=== PATIENT | male | born 1995 | race Two or more races ===

== ENCOUNTER 2023-03-01 21:28 | Emergency (ER) | payer OTHER ==
[~2023-03-01] VITALS: Ht 180.3 cm; Wt 93.2 kg
[2023-03-01 21:35] VITALS: BP 112/76
[2023-03-01] MEDS ORDERED: CEPH500C PO (23:25)
[2023-03-01] MEDS ORDERED: SULF400T11 PO (23:25)
== END 2023-03-01 23:39 | disposition home or self-care (01) ==
LOC: ER 21:28
DX: L03.317 Cellulitis of buttock (principal); R00.0 Tachycardia, unspecified; F41.9 Anxiety disorder, unspecified; F32.9 Major depressive disorder, single episode, unspecified; F17.290 Nicotine dependence, other tobacco product, uncomplicated; Z79.899 Other long term (current) drug therapy
CPT/HCPCS: 93005

== ENCOUNTER 2023-03-02 22:04 | Emergency (ER) | payer OTHER ==
[~2023-03-02] VITALS: Ht 180.3 cm; Wt 97.4 kg
[~2023-03-02 22:04] MED LIST: CEPH500C PO; SULF400T11 PO
[2023-03-03] MEDS ORDERED: ONDANSETRON HCL 4 MG/2 ML VIAL IV ONE
[2023-03-03] MEDS ORDERED: MAALOX PLUS or MAALOX 30 ML PO ONE
[2023-03-03] MEDS ORDERED: ONDANSETRON ODT 4 MG TAB PO ONE (00:15)
[2023-03-03 00:48] LABS: Basophils # (auto) 0 10 ^3/uL (0-0.2); Basophils % (auto) 0.5 % (0.0-2.0); Eosinophils # (auto) 0.2 10 ^3/uL (0-0.8); Eosinophils % (auto) 2.5 % (0.0-7.0); Hematocrit 42.1 % (41.0-53.0); Hemoglobin 14.3 g/dL (13.5-17.5); Lymphocytes # (auto) 2.4 10 ^3/uL (0.4-5.4); Lymphocytes % (auto) 27.4 % (10.0-50.0); Mean Corpuscular Hemoglobin 30.5 pg (28.0-32.0); Mean Corpuscular Volume 89.7 fL (80.0-100.0); Monocytes # (auto) 1.1 10 ^3/uL (0-1.3); Neutrophils # (auto) 5.1 10 ^3/uL (1.6-8.6); Neutrophils % (auto) 57.6 % (37.0-80.0); Nucleated Red Blood Cells % 0.1 %; Red Blood Cells 4.69 10^6/uL (4.5-5.90); Red Cell Distribution Width 13.1 % (11.8-14.3); White Blood Cell 8.9 10^3/uL (4.4-10.8)
[2023-03-03 00:59] LABS: Albumin 3.7 g/dL (3.4-5.0); Calcium 8.8 mg/dL (8.5-10.1)
[2023-03-03 01:01] LABS: BUN/Creatinine Ratio 8.3 (10.0-20.0)
[2023-03-03 01:04] LABS: Bilirubin, Total 0.2 mg/dL (0.2-1.0); Total Protein 7.6 g/dL (6.4-8.2)
[2023-03-03] MEDS ORDERED: ZOFR4T PO (02:05)
[2023-03-03] MEDS ORDERED: SUCR1SUS26 PO (02:05)
[2023-03-03 02:20] VITALS: BP 107/72
== END 2023-03-03 02:28 | disposition home or self-care (01) ==
LOC: ER 22:04
DX: L03.317 Cellulitis of buttock (principal); F41.9 Anxiety disorder, unspecified; F32.9 Major depressive disorder, single episode, unspecified
CPT/HCPCS: 36415; 74176; 80053; 83690; 85025; 99284; Q0162

== ENCOUNTER 2023-03-16 11:47 | Emergency (ER) | payer OTHER ==
[~2023-03-16] VITALS: Ht 180.3 cm; Wt 93.8 kg
[~2023-03-16 11:47] MED LIST changes: +SUCR1SUS26 PO; +ZOFR4T PO
[2023-03-16 12:34] VITALS: BP 117/75; PULSE 105; RESP 18; TEMP 99.7; O2SAT 94
[2023-03-16] MEDS ORDERED: IBUP-1456 PO (12:51)
[2023-03-16] MEDS ORDERED: BACDST PO (12:51)
[2023-03-16] MEDS ORDERED: CEPH500C PO (12:51)
== END 2023-03-16 13:02 | disposition home or self-care (01) ==
LOC: ER 11:47
DX: L73.9 Follicular disorder, unspecified (principal); F41.9 Anxiety disorder, unspecified; F32.9 Major depressive disorder, single episode, unspecified; F17.200 Nicotine dependence, unspecified, uncomplicated; Z79.1 Long term (current) use of non-steroidal anti-inflammatories (NSAID); Z79.899 Other long term (current) drug therapy